=== PATIENT | female | born 1960 | race Caucasian/White ===

== ENCOUNTER 2020-01-06 10:44 | Observation (INO) ==
[2020-01-06] MEDS ORDERED: 0.9 % Sodium Chloride 1,000 ML IVC ONE (11:02)
[2020-01-06 11:16] LABS: Basophils % 0.2 %; Eosinophils % 0.7 %; Hematocrit 40.7 % (35.3-44.9); Immature Granulocytes % 0.2 % (0-4); Lymphocytes # 1.6 K/mcL (0.6-4.6); Lymphocytes % 27.6 %; Mean Corpuscular HGB Conc 31.9 g/dL (31.6-35.5); Mean Corpuscular Hemoglobin 27.9 pg (28.0-33.3); Mean Corpuscular Volume 87.3 fL (83.0-100.0); Mean Platelet Volume 8.9 fL (9.4-12.4); Monocytes # 0.4 K/mcL (0.0-1.3); Monocytes % 6.5 %; Neutrophils # 3.7 K/mcL (1.6-8.9); Platelet Count 234 K/mcL (140-400); Red Blood Count 4.66 M/mcL (3.82-4.97); Red Cell Distribution Width 13.1 % (11.5-14.5); Segmented Neutrophils % 64.8 %; White Blood Count 5.7 K/mcL (4.3-11.1)
[2020-01-06 11:38] LABS: BUN/Creatinine Ratio 16 (6-26); Blood Urea Nitrogen 12 mg/dL (8-23); Calcium 9.4 mg/dL (8.6-10.3); Carbon Dioxide 28 mEq/L (23-29); Chloride 107 mEq/L (98-107); Glucose 92 mg/dL (70-105); Osmolality,Calculated 285 (280-300); Potassium 3.6 mEq/L (3.5-5.1); Sodium 138 mEq/L (136-145); Troponin I 0.05 ng/mL (< 0.04); eGFR For African Americans > 60 (> 60); eGFR For Non-African Americans > 60 (> 60)
[2020-01-06] MEDS ORDERED: Aspirin 81 MG TAB.CHEW PO ONE (11:52)
[2020-01-06 15:31] LABS: Troponin I 0.15 ng/mL (< 0.04)
[2020-01-06] MEDS ORDERED: Naloxone 0.4 MG/ML INJ IVP PRN (16:26)
[2020-01-06] MEDS ORDERED: *HR* Heparin 5,000 UNIT/ML VIAL IVP PRN ×2 (16:28)
[2020-01-06 16:30] LABS: Thyroid Stimulating Hormone 0.465 mcIU/mL (0.340-5.600)
[2020-01-06] MEDS ORDERED: Heparin 25,000 UNIT/250 ML D5W 25,000 UNIT/250 ML IV.SOLN IVC SCH (16:30)
[2020-01-06 17:42] LABS: Heparin anti-factor XA UFH < 0.04 IU/mL (0.30-0.70)
[2020-01-06 17:43] LABS: Prothrombin Time 11.5 Seconds (9.4-12.1)
[2020-01-07 04:28] LABS: BUN/Creatinine Ratio 24 (6-26); Blood Urea Nitrogen 17 mg/dL (8-23); Calcium 9.2 mg/dL (8.6-10.3); Carbon Dioxide 30 mEq/L (23-29); Chloride 108 mEq/L (98-107); Chol/HDL Ratio 2.2 (0-4.9); Cholesterol 144 mg/dL (< 200); Glucose 87 mg/dL (70-105); HDL Cholesterol 66 mg/dL (40-59); LDL Cholesterol,Calculated 67 mg/dL (0-99); Magnesium 2.1 mg/dL (1.6-2.6); Osmolality,Calculated 291 (280-300); Potassium 3.9 mEq/L (3.5-5.1); Sodium 140 mEq/L (136-145); Triglycerides 54 mg/dL (< 150); eGFR For African Americans > 60 (> 60); eGFR For Non-African Americans > 60 (> 60)
[2020-01-07] MEDS ORDERED: amLODIPine 5 MG TABLET PO SCH (09:00)
[2020-01-07] MEDS ORDERED: Aspirin 81 MG TAB.CHEW PO SCH (09:00)
[2020-01-07 10:21] LABS: Estimated Average Glucose 111 mg/dl
[2020-01-07] MEDS ORDERED: DilTIAZem CD (24hr) 120 MG CAP.ER.24H PO SCH (10:30)
[2020-01-07 11:41] VITALS: BP 108/72
== END 2020-01-07 13:37 | disposition home or self-care (01) ==
LOC: 3BNU 10:44 → EMEROOARM 10:44 → SUATTDRO 15:48 → 3BNU 17:23
PROVIDERS: ADMIT Internal Medicine; ATTEND Internal Medicine